=== PATIENT | male | born 1935 | race Caucasian/White ===

== ENCOUNTER 2018-01-17 09:42 | Inpatient (IN) | payer MEDICARE, OTHER ==
[~2018-01-17] VITALS: Ht 177.8 cm; Wt 90.7 kg
--- NOTE | 2018-01-17 09:58 | NUR ---
Dr. Hurtado here to see pt for MSE.
[2018-01-17] MEDS ORDERED: HYDROCODONE/APAP 5-325MG TABLET PO ONE (10:00)
--- NOTE | 2018-01-17 10:00 | NUR ---
Pt and family unable to provide information about current medications.
[2018-01-17 10:16] LABS: BASOPHILS % (AUTO) 0.5 % (0.0-2.0); EOSINOPHILS # (AUTO) 0.1 K/uL (0.0-0.7); EOSINOPHILS % (AUTO) 0.6 % (0.0-7.0); HEMATOCRIT 41.7 % (36.7-47.1); HEMOGLOBIN 14.6 g/dL (12.5-16.3); LYMPHOCYTES # (AUTO) 1.6 K/uL (20.0-40.0); MEAN CORPUSCULAR HEMOGLOBIN 32.1 uug (23.8-33.4); MEAN CORPUSCULAR HGB CONC 35 g/dL (32.5-36.3); MEAN CORPUSCULAR VOLUME 91.9 fL (73.0-96.2); MONOCYTES # (AUTO) 0.6 K/uL (2.0-10.0); MONOCYTES % (AUTO) 6.1 % (0.0-11.0); NEUTROPHILS # (AUTO) 7.2 K/uL (1.8-8.9); NEUTROPHILS % (AUTO) 75.8 % (38.5-71.5); PLATELET COUNT (AUTO) 133 K/uL (152-348); RED BLOOD CELL COUNT(AUTO) 4.54 MIL/uL (4.06-5.63); WHITE BLOOD COUNT (AUTO) 9.5 K/uL (3.6-10.2)
[2018-01-17 10:25] LABS: CARBON DIOXIDE 29 mmol/L (21-32); CHLORIDE 103 mmol/L (98-107); CREATININE 1.2 mg/dL (0.6-1.3); GLUCOSE 128 mg/dL (74-106); POTASSIUM 3.8 mmol/L (3.5-5.1); UREA NITROGEN, BLOOD 15 mg/dL (7-18)
[2018-01-17] MEDS ORDERED: HYDROCODONE/APAP 5-325MG TABLET ONE (10:27)
[2018-01-17 10:31] LABS: ALANINE AMINOTRANSFERASE 39 U/L (16-63); ALKALINE PHOSPHATASE 61 U/L (50-136); ASPARTATE AMINOTRANSFERASE 19 U/L (15-37); BILIRUBIN,DIRECT 0.2 mg/dL (0.0-0.2); BILIRUBIN,TOTAL 0.9 mg/dL (0.2-1.0); TOTAL PROTEIN, SERUM 7.1 g/dL (6.4-8.2)
--- NOTE | 2018-01-17 11:39 | NUR ---
Call placed to [facility], Dr. Hernandez will be paged.
[2018-01-17] MEDS ORDERED: NITROGLYCERIN 0.4 MG/TAB BOTTLE SL ONE (12:30)
[2018-01-17] MEDS ORDERED: ACETAMINOPHEN 325 MG TABLET PO PRN (12:30)
[2018-01-17] MEDS ORDERED: Z GUARD REMEDY PASTE 57 GM TUBE TOP PRN (12:30)
[2018-01-17] MEDS ORDERED: DOCUSATE SODIUM 100 MG CAPSULE PO PRN (12:30)
[2018-01-17] MEDS ORDERED: ONDANSETRON 4 MG/2 ML VIAL IV PRN (12:30)
[2018-01-17] MEDS ORDERED: MAGNESIUM HYDROXIDE 30 ML LIQUID UDC PO PRN (12:30)
--- NOTE | 2018-01-17 12:37 | NUR ---
Full telephone SBAR report given to WASHINGTON Pisano.
[2018-01-17 12:45] VITALS: BP 166/71
--- NOTE | 2018-01-17 12:45 | NUR ---
Pt left ER and transferred to 2nd floor room #212. Pt stable and nad noted upon leaving the ER.
[2018-01-17] MEDS ORDERED: NITROGLYCERIN 0.4 MG/TAB BOTTLE SL PRN (13:15)
--- NOTE | 2018-01-17 13:15 | NUR ---
RECIEVED PATIENT FROM ER AWAKE ALERT COOPERATE WELL VS TAKEN SLIGHTLY HIGH BP AND LOW GRADE TEMP NO SOB OR ANY PAIN CALL LIGHT INSTRUCTION HL INPLACE LAC#22
--- NOTE | 2018-01-17 13:20 | NUR ---
ECCHOCARDIOGRAM DONE AT BEDSIDE
[2018-01-17] MEDS: IV NS 1000 ML 1,000 ML IV PRN (13:34)
--- NOTE | 2018-01-17 13:45 | NUR ---
START IVF INFUSION WELL FAMILY AT BEDSIDE RESTING WITH CALL SHUKLA IN REACH
[2018-01-17 15:40] VITALS: BP 164/74
--- NOTE | 2018-01-17 15:45 | NUR ---
VS TAKEN BP WAS HIGH AND TEMP 102.8 TYLENOL PO GIVEN AND COOLING COMPRESS APPLY SOFTWARE TOOLS BUILD ENGINEER DMITIRY,T WAS NOTIFY NEW ORDER IN CHART BC X2 DRAW BY LAB AND URINE SENT ORDER
--- NOTE | 2018-01-17 15:50 | NUR ---
DMDEMARIOT CAME TO SEE PATINT AND ORDER CT HEAD WITHOUT CONTRAST TODAY
--- NOTE | 2018-01-17 16:30 | NUR ---
US OF CAROTID AT BEDSIDE ARNOLDO PROCEDURE WELL
[2018-01-17] MEDS ORDERED: AMLO10TA2 PO (16:32)
[2018-01-17] MEDS ORDERED: PRAV40TA PO (16:32)
[2018-01-17] MEDS ORDERED: LOSA100T15 PO (16:32)
[2018-01-17] MEDS ORDERED: IBUP-1953 PO (16:32)
[2018-01-17] MEDS ORDERED: ESCI10TA PO (16:32)
[2018-01-17 16:37] LABS: *BILIRUBIN,URIN NEGATIVE (NEGATIVE); *BLOOD, URINE NEGATIVE (NEGATIVE); *CLARITY,URINE CLEAR (CLEAR); *COLOR,URINE YELLOW (YELLOW); *KETONES,URINE NEGATIVE (NEGATIVE); *PROTEIN,URINE 1+ (NEGATIVE); *UROBILINOGEN,URINE 0.2 E.U./dl (NORMAL); LEUKOCYTE ESTERASE ,URINE NEGATIVE (NEGATIVE); NITRITE, URINE NEGATIVE (NEGATIVE); UGLUCOSE NEGATIVE (NEGATIVE)
[2018-01-17] MEDS ORDERED: AMLODIPINE 10 MG TABLET PO ONE (16:41)
[2018-01-17 16:42] LABS: WBC,URINE 0-3 /HPF (0-3)
[2018-01-17 16:43] LABS: MUCUS,URINE FEW /LPF (0-FEW)
[2018-01-17] MEDS ORDERED: IBUPROFEN 400 MG TABLET PO SCH (16:45)
[2018-01-17] MEDS ORDERED: CLONIDINE HCL 0.1 MG TABLET PO PRN (16:45)
[2018-01-17] MEDS ORDERED: IBUPROFEN 600 MG TABLET PO PRN (17:00)
--- NOTE | 2018-01-17 17:15 | NUR ---
RE CHECK TEMP IT WAS 100.F AND PAIN MED PRN GIVEN ORDERED ARNOLDO PO FLD MOD AMT
[2018-01-17] MEDS: HYDROCODONE/APAP 5-325MG TABLET PO PRN (17:22)
--- NOTE | 2018-01-17 17:30 | NUR ---
REFUSED TO EAT DINNER RESTING FAMILY AT BEDSIDE NO ACUTE DISTRESS SAFETY MEASURE PROVIDED CALL SHUKLA IN REACH AND IVF INFUSION WELL
[2018-01-17 19:00] VITALS: BP 104/65
--- NOTE | 2018-01-17 19:20 | NUR ---
RECEIVED SHIFT REPORT FROM WASHINGTON MACHUCA. PT IN BED, NO COMPLAINTS AT THIS TIME. IVF NS INFUSING AT 75 CC/HR VIA 22 G IV ACCESS IN LEFT AC. PT FEBRILE AT 100.4, COOLING MEASURES TAKEN. PT DENIES PAIN, SOB, C/P, DIZZINESS, N/V. WILL CONTINUE COOLING MEASURES AND MONITOR FOR FEVER. CALL LIGHT WITHIN REACH, PT ORIENTED TO UNIT AND USE OF CALL LIGHT. BED IN LOW & LOCKED POSITION WITH BILATERAL UPPER SIDE RAILS UP.
--- NOTE | 2018-01-17 19:53 | NUR ---
PT NSR ON TELE MONITORING.
[2018-01-17] MEDS: MORPHINE SULFATE 2 MG/1 ML DISP.SYRIN IV PRN (20:46)
[2018-01-17] MEDS: ATORVASTATIN 10 MG TABLET PO SCH (20:46)
[2018-01-17] MEDS: CLINDAMYCIN PHOSPHATE IV 600 MG in IV DEXTROSE 5% 100 ML IV SCH (22:20)
--- NOTE | 2018-01-17 23:18 | NUR ---
PT NSR ON TELE MONITORING. PT COMPLAINED OF INABILITY TO URINATE. BLADDER SCAN DONE, 0 ML OF URINE NOTED IN THE BLADDER. PT URINATED ~15 CC IN THE URINAL.
[2018-01-18] VITALS: BP 135/52
[2018-01-18] MEDS: MORPHINE SULFATE 2 MG/1 ML DISP.SYRIN IV PRN (03:20)
[2018-01-18] MEDS: IV NS 1000 ML 1,000 ML IV PRN ×2 (03:20→21:10)
[2018-01-18 04:00] VITALS: BP 129/61
[2018-01-18] MEDS: CLINDAMYCIN PHOSPHATE IV 600 MG in IV DEXTROSE 5% 100 ML IV SCH ×3 (05:28→21:10)
[2018-01-18] MEDS: HYDROCODONE/APAP 5-325MG TABLET PO PRN (05:30)
[2018-01-18 06:08] LABS: BASOPHILS % (AUTO) 0.2 % (0.0-2.0); HEMATOCRIT 36.9 % (36.7-47.1); HEMOGLOBIN 12.6 g/dL (12.5-16.3); LYMPHOCYTES % (AUTO) 13.7 % (20.5-51.5); MEAN CORPUSCULAR HEMOGLOBIN 30.9 uug (23.8-33.4); MEAN CORPUSCULAR HGB CONC 34 g/dL (32.5-36.3); MEAN CORPUSCULAR VOLUME 90.5 fL (73.0-96.2); MONOCYTES # (AUTO) 1.2 K/uL (2.0-10.0); MONOCYTES % (AUTO) 7.9 % (0.0-11.0); NEUTROPHILS # (AUTO) 11.5 K/uL (1.8-8.9); NEUTROPHILS % (AUTO) 78.2 % (38.5-71.5); PLATELET COUNT (AUTO) 107 K/uL (152-348); RED BLOOD CELL COUNT(AUTO) 4.08 MIL/uL (4.06-5.63); WHITE BLOOD COUNT (AUTO) 14.8 K/uL (3.6-10.2)
[2018-01-18 06:30] LABS: ALANINE AMINOTRANSFERASE 30 U/L (16-63); ALKALINE PHOSPHATASE 46 U/L (50-136); ASPARTATE AMINOTRANSFERASE 16 U/L (15-37); BILIRUBIN,TOTAL 1.2 mg/dL (0.2-1.0); CARBON DIOXIDE 29 mmol/L (21-32); CHLORIDE 101 mmol/L (98-107); CHOLESTEROL 111 mg/dL (<200); CREATININE 1.2 mg/dL (0.6-1.3); GLUCOSE 120 mg/dL (74-106); HDL CHOLESTEROL 50 mg/dL (40-60); MAGNESIUM 1.3 mg/dL (1.8-2.4); PHOSPHOROUS 3.1 mg/dL (2.5-4.9); POTASSIUM 3.5 mmol/L (3.5-5.1); TOTAL PROTEIN, SERUM 6.1 g/dL (6.4-8.2); TRIGLYCERIDES 86 MG/DL (30-150); UREA NITROGEN, BLOOD 18 mg/dL (7-18)
[2018-01-18 07:04] LABS: THYROID STIMULATING HORMONE 1.487 mIU/mL (0.358-3.740)
--- NOTE | 2018-01-18 07:30 | NUR ---
Sleeping, appears comfortable. O2at 2L/NC. IVF infusing. Tele SR. Decreased urine output from shift mgr. Will inform hospitalist
[2018-01-18] MEDS ORDERED: Medication Not On Formulary EA (Losartan Potassium 100 MG) PO SCH (09:00)
[2018-01-18] MEDS ORDERED: ASPIRIN EC 325 MG TABLET.DR PO SCH (09:00)
--- NOTE | 2018-01-18 10:30 | NUR ---
Sent to Radiology for CT head.
[2018-01-18] MEDS: ESCITALOPRAM OXALATE 10 MG TABLET PO SCH (10:34)
[2018-01-18] MEDS: LOSARTAN POTASSIUM 50 MG TABLET PO SCH (10:34)
[2018-01-18] MEDS: PANTOPRAZOLE SODIUM 40 MG VIAL IV SCH (10:35)
[2018-01-18] MEDS: AMLODIPINE 10 MG TABLET PO SCH (10:35)
[2018-01-18] MEDS ORDERED: IV NORMAL SALINE 500 ML BAG IV ONE (11:00)
--- NOTE | 2018-01-18 11:00 | NUR ---
PT eval done, ambulated in the hallway, steady without assistive device
--- NOTE | 2018-01-18 12:30 | NUR ---
Difficulty and painful swallowing, requested soup.
--- NOTE | 2018-01-18 14:30 | NUR ---
ST eval done, diet changed to puree.
[2018-01-18 15:12] VITALS: BP 126/56
--- NOTE | 2018-01-18 18:43 | NUR ---
Tele ZAC. Offered pain medication but refused.
--- NOTE | 2018-01-18 20:00 | NUR ---
Pt observed to be sitting up in bed with no s/s of acute distress noted at this time. Pt aware of all plan of care and requesting sleeping medication at this time. Safe environment implemented at all times. Will continue to monitor closely.
[2018-01-18 20:18] VITALS: BP 138/60
[2018-01-18] MEDS ORDERED: ZOLPIDEM 5 MG TABLET PO ONE (21:00)
[2018-01-18] MEDS: ATORVASTATIN 10 MG TABLET PO SCH (21:10)
[2018-01-19 04:00] VITALS: BP 148/66
[2018-01-19] MEDS: CLINDAMYCIN PHOSPHATE IV 600 MG in IV DEXTROSE 5% 100 ML IV SCH ×2 (05:35→13:50)
--- NOTE | 2018-01-19 06:00 | NUR ---
Pt stable throughout the night. Denies pain at this time. All needs attended to. Safe environment implemented at all times.
[2018-01-19 06:46] LABS: BASOPHILS # (AUTO) 0.1 K/uL (0.0-8.0); BASOPHILS % (AUTO) 0.5 % (0.0-2.0); EOSINOPHILS # (AUTO) 0.1 K/uL (0.0-0.7); EOSINOPHILS % (AUTO) 0.7 % (0.0-7.0); HEMATOCRIT 36.3 % (36.7-47.1); HEMOGLOBIN 12.4 g/dL (12.5-16.3); LYMPHOCYTES # (AUTO) 1.9 K/uL (20.0-40.0); LYMPHOCYTES % (AUTO) 18.4 % (20.5-51.5); MEAN CORPUSCULAR HEMOGLOBIN 31.8 uug (23.8-33.4); MEAN CORPUSCULAR HGB CONC 34 g/dL (32.5-36.3); MEAN CORPUSCULAR VOLUME 92.8 fL (73.0-96.2); MONOCYTES # (AUTO) 0.8 K/uL (2.0-10.0); MONOCYTES % (AUTO) 7.6 % (0.0-11.0); NEUTROPHILS # (AUTO) 7.7 K/uL (1.8-8.9); NEUTROPHILS % (AUTO) 72.8 % (38.5-71.5); PLATELET COUNT (AUTO) 102 K/uL (152-348); RED BLOOD CELL COUNT(AUTO) 3.91 MIL/uL (4.06-5.63); WHITE BLOOD COUNT (AUTO) 10.6 K/uL (3.6-10.2)
[2018-01-19 06:55] LABS: CARBON DIOXIDE 32 mmol/L (21-32); CHLORIDE 106 mmol/L (98-107); CREATININE 1.1 mg/dL (0.6-1.3); GLUCOSE 97 mg/dL (74-106); POTASSIUM 3.6 mmol/L (3.5-5.1); UREA NITROGEN, BLOOD 14 mg/dL (7-18)
--- NOTE | 2018-01-19 08:00 | NUR ---
AWAKE ALERT COOPERATE WELL NO PAIN OR SOB CONTINUE IVF INFUSION WELL LEFT HAND RESTING IN BED WITH CALL LIGHT IN REACH
--- NOTE | 2018-01-19 08:30 | NUR ---
REFUSED TO EAT BREAKFAST BUT TAKE PO MEDICATION WELL STATE WANT TO GO HOME
[2018-01-19] MEDS ORDERED: ASPIRIN EC 81 MG TABLET.DR PO SCH (09:00)
[2018-01-19] MEDS ORDERED: ASPIRIN EC 325 MG TABLET.DR PO SCH (09:00)
[2018-01-19] MEDS: ESCITALOPRAM OXALATE 10 MG TABLET PO SCH (09:09)
[2018-01-19] MEDS: AMLODIPINE 10 MG TABLET PO SCH (09:11)
[2018-01-19] MEDS: LOSARTAN POTASSIUM 50 MG TABLET PO SCH (09:11)
[2018-01-19] MEDS: PANTOPRAZOLE SODIUM 40 MG VIAL IV SCH (09:12)
[2018-01-19 11:34] VITALS: BP 146/56
[2018-01-19] MEDS: IV NS 1000 ML 1,000 ML IV PRN (14:03)
[2018-01-19 16:00] VITALS: BP 133/80
[2018-01-19] MEDS ORDERED: CLIN300C11 PO (16:16)
[2018-01-19] MEDS ORDERED: LACT1CAP57 PO (16:16)
--- NOTE | 2018-01-19 17:30 | NUR ---
D/C INSTRUCTION REGARDING F/U WITH OWN PMD CONTINUE HOME MEDICINE ORDER AND PRECRIPTION AND PHAMACY EXPLAINED ALL HOME MED ,VERBALIZES UNDERSTAND HL WAS D/C PRIOR D/C HOME TODAY
--- NOTE | 2018-01-19 17:50 | NUR ---
D/C HOME WITH HIS BELONGING CONDITION STABLE NO PAIN OR SOB
== END 2018-01-19 17:50 | disposition home or self-care (01) | DRG 206 ==
LOC: ER 09:42 → TELE 12:25 → MED 01-18 17:20
PROVIDERS: ADMIT Internal Medicine; ATTEND Nurse Practitioner Acute Care
DX: M94.0 Chondrocostal junction syndrome [Tietze] (principal); I50.32 Chronic diastolic (congestive) heart failure; K21.9 Gastro-esophageal reflux disease without esophagitis; I11.0 Hypertensive heart disease with heart failure; R13.10 Dysphagia, unspecified; E89.2 Postprocedural hypoparathyroidism; Y83.8 Other surgical procedures as the cause of abnormal reaction of the patient, or of later complication, without mention of misadventure at the time of the procedure; J98.4 Other disorders of lung; I70.0 Atherosclerosis of aorta; R94.02 Abnormal brain scan
CPT/HCPCS: 36415; 70030-TC; 70450; 71045; 83735; 84100; 84443; 85025; 85730; 86403; 87040; 87070; 87086; 92526; 92610; 93005; 93307; 93880; A4663; C9113; J2270; J3490; J7030; J7040; J7060

== ENCOUNTER 2022-06-07 15:36 | Inpatient (IN) | payer MEDICARE ==
[~2022-06-07] VITALS: Ht 182.9 cm; Wt 81.6 kg
[~2022-06-07 15:36] MED LIST: AMLO10TA59 PO; CLIN300C12 PO; ESCI10TA PO; IBUP-1953 PO; LACT1CAP57 PO; LOSA100T31 PO; PRAV40TA PO
[2022-06-07] MEDS ORDERED: IV NORMAL SALINE 1000 ML BAG IV ONE (16:00)
[2022-06-07] MEDS ORDERED: VANCOMYCIN IV 1,000 MG in IV DEXTROSE 5% 250 ML IV ONE (16:00)
[2022-06-07] MEDS ORDERED: VANCOMYCIN IV 200 ML ONE (16:21)
[2022-06-07 16:22] LABS: HEMATOCRIT 35.7 % (36.7-47.1); MEAN CORPUSCULAR HEMOGLOBIN 29.7 uug (23.8-33.4); MEAN CORPUSCULAR VOLUME 90.8 fL (73.0-96.2); PLATELET COUNT (AUTO) 155 K/uL (152-348)
[2022-06-07 16:32] LABS: CARBON DIOXIDE 30 mmol/L (21-32); CHLORIDE 107 mmol/L (98-107); CREATININE 1.5 mg/dL (0.6-1.3); GLUCOSE 119 mg/dL (74-106); POTASSIUM 4.2 mmol/L (3.5-5.1); UREA NITROGEN, BLOOD 39 mg/dL (7-18)
[2022-06-07 16:40] LABS: ALANINE AMINOTRANSFERASE 23 U/L (16-63); ALKALINE PHOSPHATASE 87 U/L (50-136); ASPARTATE AMINOTRANSFERASE 67 U/L (15-37); BILIRUBIN,DIRECT 0.2 mg/dL (0.0-0.2); BILIRUBIN,TOTAL 0.9 mg/dL (0.2-1.0); TOTAL PROTEIN, SERUM 6.6 g/dL (6.4-8.2)
[2022-06-07] MEDS ORDERED: IV NORMAL SALINE 250 ML IV ONE (18:18)
[2022-06-07] MEDS ORDERED: IOHEXOL 300MG/ML 100 ML INFUS..BTL ONE (18:18)
[2022-06-07] MEDS ORDERED: SWABABLE VALVE TRANSFER SET EA MC ONE (18:18)
[2022-06-07] MEDS ORDERED: ENALAPRILAT DIHYDRATE 1.25 MG/1 ML VIAL IV PRN (19:45)
[2022-06-07] MEDS ORDERED: ONDANSETRON 4 MG/2 ML VIAL IV PRN (19:45)
[2022-06-07] MEDS ORDERED: ACETAMINOPHEN 325 MG TABLET PO PRN (19:45)
[2022-06-07] MEDS ORDERED: MORPHINE SULFATE 2 MG/1 ML DISP.SYRIN IV PRN (19:45)
[2022-06-08] MEDS ORDERED: PIPERACILLIN/TAZO 2.25 G in IV DEXTROSE 5% 50 ML IV SCH ×2
[2022-06-08] MEDS: AMLODIPINE 10 MG TABLET PO SCH ×2 (01:05→08:35)
[2022-06-08] MEDS ORDERED: PIPERACILLIN/TAZOBACTAM/D5W 50 ML ONE ×2 (01:31→03:43)
[2022-06-08] MEDS: PIPERACILLIN/TAZO 2.25 G in IV DEXTROSE 5% 50 ML IV SCH ×2 (01:43→05:39)
[2022-06-08 05:03] VITALS: BP 176/85
[2022-06-08] MEDS: PANTOPRAZOLE SODIUM 40 MG TABLET.DR PO SCH (06:40)
[2022-06-08 07:53] LABS: HEMATOCRIT 32.5 % (36.7-47.1); MEAN CORPUSCULAR HEMOGLOBIN 30.1 uug (23.8-33.4); MEAN CORPUSCULAR VOLUME 91.3 fL (73.0-96.2); PLATELET COUNT (AUTO) 136 K/uL (152-348)
[2022-06-08 08:18] LABS: THYROID STIMULATING HORMONE 2.72 mIU/mL (0.358-3.740)
[2022-06-08 08:29] LABS: PHOSPHOROUS 3.1 mg/dL (2.5-4.9)
[2022-06-08] MEDS: ESCITALOPRAM OXALATE 10 MG TABLET PO SCH (08:34)
[2022-06-08] MEDS: FUROSEMIDE 20 MG/2 ML VIAL IV SCH (08:34)
[2022-06-08] MEDS: ENOXAPARIN SODIUM 40 MG/0.4 ML DISP.SYRIN SQ SCH (08:38)
[2022-06-08] MEDS: hydrALAZINE HCL 25 MG TABLET PO SCH ×3 (10:49→20:48)
[2022-06-08 11:39] VITALS: BP 127/63
[2022-06-08 11:48] LABS: IRON, SERUM 23 ug/dL (50-175)
[2022-06-08 12:14] LABS: FERRITIN 522 ng/mL (26-388)
[2022-06-08] MEDS: PIPERACILLIN SODIUM/TAZOBACTAM 3.375 G in IV DEXTROSE 5% 100 ML IV SCH ×2 (14:05→20:48)
[2022-06-08] MEDS ORDERED: ZOLP5TAB2 PO (15:13)
[2022-06-08] MEDS: IV NS 1000 ML 1,000 ML IV PRN (15:52)
[2022-06-08 16:00] VITALS: BP 125/49
[2022-06-08 20:21] VITALS: BP 143/56
[2022-06-08] MEDS: DOCUSATE SODIUM 100 MG CAPSULE PO SCH (20:48)
[2022-06-09 00:02] VITALS: BP 170/71
[2022-06-09 04:07] VITALS: BP 155/49
[2022-06-09] MEDS: PIPERACILLIN SODIUM/TAZOBACTAM 3.375 G in IV DEXTROSE 5% 100 ML IV SCH ×3 (06:03→21:52)
[2022-06-09] MEDS: PANTOPRAZOLE SODIUM 40 MG TABLET.DR PO SCH (06:04)
[2022-06-09] MEDS: hydrALAZINE HCL 25 MG TABLET PO SCH ×3 (06:06→21:04)
[2022-06-09 07:54] LABS: HEMATOCRIT 31.1 % (36.7-47.1); MEAN CORPUSCULAR HEMOGLOBIN 30.6 uug (23.8-33.4); MEAN CORPUSCULAR VOLUME 91.1 fL (73.0-96.2); PLATELET COUNT (AUTO) 133 K/uL (152-348)
[2022-06-09 08:07] LABS: BILIRUBIN,TOTAL 0.5 mg/dL (0.2-1.0); CREATININE 1.1 mg/dL (0.6-1.3); MAGNESIUM 1.9 mg/dL (1.8-2.4); PHOSPHOROUS 3.1 mg/dL (2.5-4.9); POTASSIUM 3.5 mmol/L (3.5-5.1); TOTAL PROTEIN, SERUM 5.6 g/dL (6.4-8.2)
[2022-06-09] MEDS: FUROSEMIDE 20 MG/2 ML VIAL IV SCH (08:39)
[2022-06-09] MEDS: ESCITALOPRAM OXALATE 10 MG TABLET PO SCH (08:39)
[2022-06-09] MEDS: CYANOCOBALAMIN 1000 MCG/ML VIAL IM SCH (08:39)
[2022-06-09] MEDS: ENOXAPARIN SODIUM 40 MG/0.4 ML DISP.SYRIN SQ SCH (08:41)
[2022-06-09] MEDS: LOSARTAN POTASSIUM 50 MG TABLET PO SCH (09:07)
[2022-06-09] MEDS: AMLODIPINE 10 MG TABLET PO SCH (09:08)
[2022-06-09 11:33] VITALS: BP 119/44
[2022-06-09 11:39] LABS: *OCCULT BLOOD STOOL NEGATIVE (NEGATIVE)
[2022-06-09] MEDS: IV NS 1000 ML 1,000 ML IV PRN (11:40)
[2022-06-09 12:26] LABS: *BILIRUBIN,URIN NEGATIVE (NEGATIVE); *CLARITY,URINE SLIGHTLY CLOUDY (CLEAR); *COLOR,URINE LIGHT YELLOW (YELLOW); *KETONES,URINE NEGATIVE (NEGATIVE); *UROBILINOGEN,URINE 0.2 E.U./dl (NORMAL); LEUKOCYTE ESTERASE ,URINE 1+ (NEGATIVE); NITRITE, URINE POSITIVE (NEGATIVE); PH,URINE 5.5 (5.0-8.0); UGLUCOSE NEGATIVE (NEGATIVE)
[2022-06-09 12:35] LABS: *CREATININE,URINE 48.6 mg/dL (30-125); *URINE TOTAL PROTEIN RANDOM 15.5 mg/dL (<150/24HR)
[2022-06-09 12:36] LABS: *BLOOD, URINE TRACE (NEGATIVE)
[2022-06-09 15:38] VITALS: BP 105/64
[2022-06-09 18:11] LABS: BACTERIA,URINE MODERATE /HPF (NONE SEEN); SQUAMOUS EPITHELIAL CELL,UR FEW /HPF (NONE SEEN); WBC,URINE 20-50 /HPF (0-3)
[2022-06-09] MEDS: DOCUSATE SODIUM 100 MG CAPSULE PO SCH (20:06)
[2022-06-09] MEDS ORDERED: ZOLPIDEM 5 MG TABLET PO PRN (20:30)
[2022-06-09 21:02] VITALS: BP 131/52
[2022-06-10 04:25] VITALS: BP 172/67
[2022-06-10] MEDS: hydrALAZINE HCL 25 MG TABLET PO SCH ×2 (04:59→14:39)
[2022-06-10] MEDS: PIPERACILLIN SODIUM/TAZOBACTAM 3.375 G in IV DEXTROSE 5% 100 ML IV SCH ×2 (05:33→13:35)
[2022-06-10] MEDS: PANTOPRAZOLE SODIUM 40 MG TABLET.DR PO SCH (06:08)
[2022-06-10 06:40] VITALS: BP 158/61
[2022-06-10 07:43] LABS: HEMATOCRIT 33.5 % (36.7-47.1); MEAN CORPUSCULAR HEMOGLOBIN 30.4 uug (23.8-33.4); PLATELET COUNT (AUTO) 145 K/uL (152-348)
[2022-06-10 08:02] LABS: MAGNESIUM 1.8 mg/dL (1.8-2.4); PHOSPHOROUS 3.3 mg/dL (2.5-4.9); POTASSIUM 3.4 mmol/L (3.5-5.1)
[2022-06-10] MEDS: ESCITALOPRAM OXALATE 10 MG TABLET PO SCH (08:31)
[2022-06-10] MEDS: FUROSEMIDE 20 MG/2 ML VIAL IV SCH (08:31)
[2022-06-10] MEDS: CYANOCOBALAMIN 1000 MCG/ML VIAL IM SCH (08:31)
[2022-06-10] MEDS: ENOXAPARIN SODIUM 40 MG/0.4 ML DISP.SYRIN SQ SCH (08:33)
[2022-06-10] MEDS: LOSARTAN POTASSIUM 50 MG TABLET PO SCH (08:55)
[2022-06-10] MEDS: AMLODIPINE 10 MG TABLET PO SCH (08:55)
[2022-06-10] MEDS ORDERED: POTASSIUM CHLORIDE 20 MEQ TAB.PRT.SR PO ONE (11:00)
[2022-06-10 12:00] VITALS: BP 134/44
[2022-06-10 16:00] VITALS: BP 124/49
[2022-06-10] MEDS ORDERED: ENSURE ENLIVE (VAN) 240 ML LIQUID PO SCH (17:00)
[2022-06-10] MEDS ORDERED: DOCU-141 PO (21:49)
[2022-06-10] MEDS ORDERED: ENOX40DI SQ (21:49)
[2022-06-10] MEDS ORDERED: ACET-2154 PO (21:49)
[2022-06-10] MEDS ORDERED: PANT40TA2 PO (21:49)
[2022-06-10] MEDS ORDERED: HYDR-894 PO (21:49)
[2022-06-10] MEDS ORDERED: CYAN-10 IJ (21:49)
== END 2022-06-10 19:26 | DRG 871 ==
LOC: ER 15:36 → TELE3 22:21 → MEDSURG3 06-09 11:50
PROVIDERS: ADMIT Internal Medicine; ATTEND Internal Medicine
DX: A41.9 Sepsis, unspecified organism (principal); G92.8 Other toxic encephalopathy; N17.0 Acute kidney failure with tubular necrosis; K56.7 Ileus, unspecified; N39.0 Urinary tract infection, site not specified; D68.69 Other thrombophilia; D64.9 Anemia, unspecified; E78.5 Hyperlipidemia, unspecified; I11.0 Hypertensive heart disease with heart failure; Z20.822 Contact with and (suspected) exposure to COVID-19; N32.89 Other specified disorders of bladder; I50.9 Heart failure, unspecified; I70.0 Atherosclerosis of aorta; I25.10 Atherosclerotic heart disease of native coronary artery without angina pectoris; M19.011 Primary osteoarthritis, right shoulder; Z79.1 Long term (current) use of non-steroidal anti-inflammatories (NSAID); Z74.09 Other reduced mobility; F32.A Depression, unspecified; Z87.891 Personal history of nicotine dependence; E53.8 Deficiency of other specified B group vitamins; S82.492A Other fracture of shaft of left fibula, initial encounter for closed fracture; X58.XXXA Exposure to other specified factors, initial encounter; Y93.9 Activity, unspecified; Y92.009 Unspecified place in unspecified non-institutional (private) residence as the place of occurrence of the external cause; G31.9 Degenerative disease of nervous system, unspecified; Z79.899 Other long term (current) drug therapy
CPT/HCPCS: 36415; 70450; 71045; 73590; 82378; 83550; 83605; 83735; 83970; 84100; 84153; 84155; 84156; 84165; 84300; 84443; 84484; 85025; 85730; 87040; 93005; 93307; A4663; G0378; J1650; J1940; J2543; J3370; J3420; J7040; Q9967

== ENCOUNTER 2022-06-10 20:00 | Inpatient (IN) | payer MEDICARE ==
[~2022-06-10] VITALS: Ht 177.8 cm; Wt 81.6 kg
[2022-06-10 20:00] VITALS: BP 151/56
[~2022-06-10 20:00] MED LIST changes: -CLIN300C12 PO; +ZOLP5TAB2 PO
[2022-06-10] MEDS ORDERED: REMEDY ESSENTIAL ZINC PASTE 113 GM TOP PRN (20:15)
[2022-06-10] MEDS ORDERED: PANT40TA2 PO (21:49)
[2022-06-10] MEDS ORDERED: ENOX40DI SQ (21:49)
[2022-06-10] MEDS ORDERED: CYAN-10 IJ (21:49)
[2022-06-10] MEDS ORDERED: HYDR-894 PO (21:49)
[2022-06-10] MEDS ORDERED: DOCU-141 PO (21:49)
[2022-06-10] MEDS ORDERED: ACET-2154 PO (21:49)
[2022-06-10] MEDS ORDERED: ZOLPIDEM 5 MG TABLET PO PRN (23:00)
[2022-06-10] MEDS ORDERED: IBUPROFEN 400 MG TABLET PO PRN (23:00)
[2022-06-10] MEDS ORDERED: ACETAMINOPHEN 325 MG TABLET PO PRN (23:30)
[2022-06-11 04:00] VITALS: BP 194/57
--- NOTE | 2022-06-11 04:13 | NUR ---
Admitted a 86 yr old male from med-surg to rehab. AAOx3-4 with some periods of confusion and forgetful ness. All needs attended. Admitted for rehab for generalized weakness, acute metabolic encepalopathy. Hx of thyroid disease, HTN, CHF, HLD Lungs CTA. Patient incontinent of bowel and bladder. BM noted this shift. Able to swallow pills whole. Kept comfortable. Skin intact except sacral area excoriated and some redness noted. Will monitor patient. No complaints presented during shift.VSS.
[2022-06-11] MEDS: hydrALAZINE HCL 25 MG TABLET PO SCH ×3 (05:29→22:33)
[2022-06-11] MEDS: PANTOPRAZOLE SODIUM 40 MG TABLET.DR PO SCH (06:02)
[2022-06-11 08:00] VITALS: BP 151/54
[2022-06-11] MEDS: ESCITALOPRAM OXALATE 10 MG TABLET PO SCH (08:34)
[2022-06-11] MEDS: LOSARTAN POTASSIUM 50 MG TABLET PO SCH (08:34)
[2022-06-11] MEDS: AMLODIPINE 10 MG TABLET PO SCH (08:34)
[2022-06-11] MEDS: CULTURELLE CAPSULE PO SCH ×3 (08:34→17:10)
[2022-06-11] MEDS: ENOXAPARIN SODIUM 40 MG/0.4 ML DISP.SYRIN SQ SCH (08:37)
--- NOTE | 2022-06-11 13:51 | NUR ---
(linking done every thu)
--- NOTE | 2022-06-11 13:52 | NUR ---
INTERDISCIPLINARY TEAM CONFERENCE
[2022-06-11 16:00] VITALS: BP 144/64
--- NOTE | 2022-06-11 19:38 | NUR ---
RECEIVED REPORT FROM WASHINGTON BROOKE. PATIENT IS ALERT AND ORIENTED X2-3 WITH PERIODS OF FORGETFULNESS, AND SPEAKS WOLOF. PATIENT PARTICIPATES IN PHYSICAL & OCCUPATIONAL THERAPY PER MD ORDER. PATIENT TOLERATES PO MEDICATIONS AND DIET WELL. PATIENT HAD ONE EPISODE OF LOW GRADE FEVER. GAVE TYNENOL ORDERED. NO FEVER FOR THE REST OF THE SHIFT. NO ACUTE DISTRESS NOTED. PATIENT RESTS ADEQUATELY DURING SHIFT. FALL PRECAUTIONS MAINTAINED, BED ALARM AND BED IN LOWEST POSITION. HOURLY ROUNDING COMPLETED. ALL NEEDS ATTENDED TO AT THIS TIME. ENDORSED CARE TO WASHINGTON BROOKE, NOC SHIFT.
[2022-06-11 20:00] VITALS: BP 118/52
[2022-06-11] MEDS: DOCUSATE SODIUM 100 MG CAPSULE PO SCH (20:42)
[2022-06-11] MEDS: ATORVASTATIN 10 MG TABLET PO SCH (20:42)
[2022-06-12 04:00] VITALS: BP 128/69
--- NOTE | 2022-06-12 05:44 | NUR ---
Quiet night. AAOx2-3 OOB to the BR with supervision. Tolerated po meds well. Needs attended. Will monitor patient. Compliant with care. Kept comfortable. No complaints presented during shift. No acute distress noted.
[2022-06-12] MEDS: hydrALAZINE HCL 25 MG TABLET PO SCH ×3 (05:58→21:22)
[2022-06-12] MEDS: PANTOPRAZOLE SODIUM 40 MG TABLET.DR PO SCH (06:15)
[2022-06-12] MEDS: ESCITALOPRAM OXALATE 10 MG TABLET PO SCH (08:12)
[2022-06-12] MEDS: CULTURELLE CAPSULE PO SCH ×3 (08:12→17:09)
[2022-06-12] MEDS: ENOXAPARIN SODIUM 40 MG/0.4 ML DISP.SYRIN SQ SCH (08:13)
[2022-06-12 08:17] VITALS: BP 142/54
[2022-06-12] MEDS: AMLODIPINE 10 MG TABLET PO SCH (08:18)
[2022-06-12] MEDS: LOSARTAN POTASSIUM 50 MG TABLET PO SCH (08:18)
[2022-06-12 12:03] VITALS: BP 149/61
[2022-06-12 16:00] VITALS: BP 127/58
[2022-06-12 20:00] VITALS: BP 134/51
--- NOTE | 2022-06-12 20:03 | NUR ---
RECEIVED REPORT FROM WASHINGTON BROOKE. PATIENT IS ALERT AND ORIENTED X2-3, AND SPEAKS KYRGYZ. PATIENT PARTICIPATES IN PHYSICAL & OCCUPATIONAL THERAPY WELL. VITAL SIGNS WITHIN NORMAL LIMITS. PATIENT TOLERATES PO MEDICATIONS AND DIET WELL. PATIENT HAS NO COMPLIANT OF PAIN DURING SHIFT. RN NOTED MULTIPLE AND FREQUENT VISITS TO THE RESTROOM, UNABLE TO PRODUCE URINE. UA ORDERED. NO ACUTE DISTRESS NOTED. PATIENT AND PATIENT'S SON (NAEEM) REQUESTED TO TALK TO CASE MANAGEMENT, CRIS. RN REPLIED MESSAGE TO HIM AND TO AM SHIFT. PATIENT RESTS ADEQUATELY DURING SHIFT. PATIENT HAD 3 BOWEL MOVEMENTS DURING SHIFT. FALL PRECAUTIONS MAINTAINED, BED ALARM AND BED IN LOWEST POSITION. ALL NEEDS ATTENDED TO AT THIS TIME. ENDORSED CARE TO WASHINGTON BROOKE, NOC SHIFT.
[2022-06-12] MEDS: ATORVASTATIN 10 MG TABLET PO SCH (20:45)
[2022-06-12] MEDS: DOCUSATE SODIUM 100 MG CAPSULE PO SCH (20:45)
[2022-06-13 00:15] LABS: *BILIRUBIN,URIN NEGATIVE (NEGATIVE); *BLOOD, URINE NEGATIVE (NEGATIVE); *COLOR,URINE YELLOW (YELLOW); *KETONES,URINE NEGATIVE (NEGATIVE); *UROBILINOGEN,URINE 0.2 E.U./dl (NORMAL); LEUKOCYTE ESTERASE ,URINE 2+ (NEGATIVE); NITRITE, URINE NEGATIVE (NEGATIVE); UGLUCOSE NEGATIVE (NEGATIVE)
[2022-06-13 00:19] LABS: *CLARITY,URINE SLIGHTLY HAZY (CLEAR)
[2022-06-13 01:51] LABS: BACTERIA,URINE MODERATE /HPF (NONE SEEN); RBC,URINE 0-3 /HPF (0-3); SQUAMOUS EPITHELIAL CELL,UR FEW /HPF (NONE SEEN); WBC,URINE 80-100 /HPF (0-3)
[2022-06-13 04:46] VITALS: BP 128/65
--- NOTE | 2022-06-13 05:27 | NUR ---
AAOX3-4 All needs attended. Able to make needs known. Ambulates to the BR with supervision. Will monitor patient. All due med given without difficulty. No acute distress noted. Ua and C&S collected and sent to lab. Results pending. Denies any pain nor any discomfort. Fall precautions maintained. Siderails up for safety. VSS.
[2022-06-13] MEDS: PANTOPRAZOLE SODIUM 40 MG TABLET.DR PO SCH (06:06)
[2022-06-13] MEDS: hydrALAZINE HCL 25 MG TABLET PO SCH ×2 (06:06→13:58)
[2022-06-13 07:47] VITALS: BP 156/51
[2022-06-13 07:48] LABS: BILIRUBIN,TOTAL 0.4 mg/dL (0.2-1.0); CREATININE 1.2 mg/dL (0.6-1.3); MAGNESIUM 1.9 mg/dL (1.8-2.4); PHOSPHOROUS 2.9 mg/dL (2.5-4.9); POTASSIUM 3.6 mmol/L (3.5-5.1); TOTAL PROTEIN, SERUM 6.3 g/dL (6.4-8.2)
[2022-06-13 07:51] LABS: HEMATOCRIT 33.7 % (36.7-47.1); MEAN CORPUSCULAR HEMOGLOBIN 30.5 uug (23.8-33.4); MEAN CORPUSCULAR VOLUME 89.9 fL (73.0-96.2); PLATELET COUNT (AUTO) 163 K/uL (152-348)
[2022-06-13] MEDS: ESCITALOPRAM OXALATE 10 MG TABLET PO SCH (10:06)
[2022-06-13] MEDS: CULTURELLE CAPSULE PO SCH ×3 (10:06→16:53)
[2022-06-13] MEDS: AMLODIPINE 10 MG TABLET PO SCH (10:07)
[2022-06-13] MEDS: LOSARTAN POTASSIUM 50 MG TABLET PO SCH (10:07)
[2022-06-13] MEDS: ENOXAPARIN SODIUM 40 MG/0.4 ML DISP.SYRIN SQ SCH (10:08)
[2022-06-13 15:41] VITALS: BP 136/63
[2022-06-13] MEDS ORDERED: ENSURE ENLIVE (VAN) 240 ML LIQUID PO SCH (17:00)
--- NOTE | 2022-06-13 19:28 | NUR ---
D/C TO HOME HEALTH PRIOR TO D/C DATE DUE TO REQUEST BY PT AND FAMILY. PICKED UP BY CAREGIVER. REFUSED TO TAKE SKIN PICS. D/C INSTRUCTIONS GIVEN TO CAREGIVER.
== END 2022-06-13 17:30 | disposition home health service (06) | DRG 871 ==
PROVIDERS: ADMIT Physical Medicine & Rehabilitation Pain Medicine; ATTEND Physical Medicine & Rehabilitation Pain Medicine
DX: A41.9 Sepsis, unspecified organism (principal); G92.8 Other toxic encephalopathy; N17.0 Acute kidney failure with tubular necrosis; N39.0 Urinary tract infection, site not specified; D64.9 Anemia, unspecified; E78.5 Hyperlipidemia, unspecified; I11.0 Hypertensive heart disease with heart failure; R19.5 Other fecal abnormalities; I50.9 Heart failure, unspecified; M19.90 Unspecified osteoarthritis, unspecified site; M89.8X9 Other specified disorders of bone, unspecified site; Z87.891 Personal history of nicotine dependence; R53.1 Weakness; R53.81 Other malaise; S82.832D Other fracture of upper and lower end of left fibula, subsequent encounter for closed fracture with routine healing; X58.XXXD Exposure to other specified factors, subsequent encounter
CPT/HCPCS: 36415; 83735; 84100; 85025; 97535-GO-CO; J1650